=== PATIENT | male | born 1955 | race Caucasian/White ===

== ENCOUNTER 2017-10-06 08:15 | Day surgery (SDC) | payer BC ==
--- NOTE | 2017-09-27 14:11 | HISTORY AND PHYSICAL ---
DATE OF SERVICE: This will be for outpatient surgery on 10/06/2017 for right shoulder arthroscopy, biceps tenodesis and rotator cuff repair. HISTORY OF PRESENT ILLNESS: The patient is a 61-year-old right hand dominant gentleman with complaints of right shoulder pain. He injured his right shoulder when he was pulling on a wrench. He felt a tearing sensation in his shoulder. He had had some antecedent pain prior to this. An MRI revealed a full thickness infraspinatus tear as well as long head of biceps tear and due to functional impairment and failure to improve with conservative measures, the patient has elected to proceed with surgical intervention. REVIEW OF SYSTEMS: No chest pain. No shortness of breath. No dysuria. PAST MEDICAL HISTORY: CVA, hyperlipidemia, and hypertension. PAST SURGICAL HISTORY: Herniorrhaphy. FAMILY HISTORY: Ischemic heart disease. PRIMARY CARE PROVIDER: Dr. Roque. MEDICATIONS: Adult aspirin, clopidogrel, lisinopril, [place], B12, and pravastatin. ALLERGIES: No known drug allergies. SOCIAL HISTORY: The patient denies alcohol and tobacco use. PHYSICAL EXAMINATION: GENERAL: The patient is well developed, well nourished, in no acute distress. HEENT: Normocephalic, atraumatic. Pupils are equal, round, and reactive. Oropharynx is clear. NECK: Supple, no lymphadenopathy. LUNGS: Clear to auscultation bilaterally. HEART: Regular rate and rhythm. ABDOMEN: Soft, nontender, nondistended. EXTREMITIES: The right shoulder demonstrates active forward elevation of 170 degrees, external rotation of 80 degrees, internal rotation of 70 degrees. He has weakness with abduction and external rotation with positive Neer's and positive Hawkin sign. He has positive Roane's maneuver pain with apprehension. IMPRESSION: Right shoulder rotator cuff tear with long head of biceps tear. PLAN: Right shoulder arthroscopy, biceps tenodesis and rotator cuff repair. The risks, benefits, options, complications and recovery have been discussed at length with the patient. He understands and wishes to proceed. Job ID: [id number] DocumentID: [id number] Dictated Date: 09/27/2017 13:27:50 Architectural Modeler Date: 09/27/2017 14:11:27 Dictated By: QASIM CONWAY MD
[~2017-10-06] VITALS: Ht 182.9 cm; Wt 93.4 kg
[~2017-10-06 08:15] MED LIST: ASPI-586 PO; CLOP75TA28 PO; CYAN100088 PO; LISI-552 PO; METO-333 PO; PRAV40TA2 PO
[2017-10-06] MEDS ORDERED: ceFAZolin 1 GM/NS 50 ML IVPB IV ONE ×2 (08:30)
[2017-10-06] MEDS ORDERED: DEXAMETHASONE 10 MG/ML (DECADRON) 1 ML VIAL ONE (08:35)
[2017-10-06] MEDS ORDERED: SEVOFLURANE (ULTANE) 15 ML INHAL SOLN ONE ×6 (08:35→11:22)
[2017-10-06] MEDS ORDERED: LIDOCAINE PF 2% 5 ML (XYLOCAINE) VIAL ONE (08:35)
[2017-10-06] MEDS ORDERED: LACTATED RINGERS 1,000 ML IV ONE (08:35)
[2017-10-06] MEDS ORDERED: proPOfol 200 MG/20 ML (DIPRIVAN) VIAL IV ONE (08:35)
[2017-10-06] MEDS ORDERED: HURRICAINE EXT TUBE (BENZOCAINE) ONE (08:35)
[2017-10-06] MEDS ORDERED: MIDAZOLAM 2 MG/2 ML (VERSED) VIAL ONE (08:36)
[2017-10-06] MEDS ORDERED: fentaNYL INJECTION 100 MCG/2 ML AMP ONE (08:36)
[2017-10-06] MEDS ORDERED: BUPIVACAINE 0.25% 30 ML (SENSORCAINE) VIAL ONE (08:44)
[2017-10-06] MEDS ORDERED: ATRACURIUM 50 MG/5 ML (TRACRIUM) IV ONE (08:49)
[2017-10-06] MEDS ORDERED: morphine PF (DURAMORPH) 10 MG/10 ML AMP ONE (09:11)
[2017-10-06] MEDS: LACTATED RINGERS 1,000 ML IV PRN ×2 (09:25→10:57)
[2017-10-06 09:29] VITALS: BP 136/80
--- NOTE | 2017-10-06 09:37 | Anesthesia-Peripheral Nerve Bl ---
Procedure Start/Stop Time Date of Procedure: Oct 06, 2017 Start Time: 09:15 Referring Physician: Pipe Stop Time: 09:30 Peripheral Nerve Block Peripheral Nerve Blockade Risk/Benefits/Alternatives discussed, including IV injection leading to complications or seizures, nerve irritation or damage, pneumothorax, total spinal anesthesia, injection, and/or bleeding. Side Confirmed: RIGHT Indication: Req Pain Mgmt by Surgeon Specifically requested for management of pain by: Pipe Patient Condition Patient Condition: Awake, Sedate/contact maintained (versed 2 mg given for block placement) Procedure Position: Supine [place]: Short-bevel Needle (s) Size: 22g 2" Technique: Injection through needle, Nerve Stimulation mA: 0.4 Sedation Given: Midazolam (2mg) Injectate: ropivacaine Concentration %: 0.5 Volume (ml): 28 Epinephrine used: No Narrative Injection was made incrementally with constant monitoring. Blood Aspirated: No Pain on injection noted: No Normal Resistance on injection: Yes Events Events: None:easy well tolerated Sucess: Complete Patient Conditon Post Peripheral Nerve Block Post Peripheral Nerve Block Vital Signs: Blood Pressure: Systolic Diastolic Heart Rate MILADYS RENE CRNA Oct 06, 2017 09:37
--- NOTE | 2017-10-06 09:54 | Progress Note-Pre Operative ---
Pre-Operative Progress Note H&P Reviewed The H&P was reviewed, patient examined and no changes noted. Date Seen by Provider: Oct 06, 2017 Time Seen by Provider: 09:54 Date H&P Reviewed: Oct 06, 2017 Time H&P Reviewed: 09:54 Pre-Operative Diagnosis: right SLAP and rotator cuff tears QASIM CONWAY MD Oct 06, 2017 09:54
--- NOTE | 2017-10-06 09:56 | Progress Note-Post Operative ---
Post-Operative Progess Note Surgeon (s)/Bus Info Consultant (s) Surgeon QASIM CONWAY MD Bus Info Consultant: Joaquin Morris Pre-Operative Diagnosis right SLAP and rotator cuff tears Post-Operative Diagnosis right shoulder SLAP tear, labral tear, humeral head chondromalacia and impingement Procedure & Operative Findings Date of Procedure 10/06/17 Procedure Performed/Findings right shoulder arthroscopic labral debridement, chondroplasty of the humeral head , acromioplasty and biceps tenodesis Anesthesia Type GETA plus interscalene Estimated Blood Loss Estimated blood loss (mL): minimal Specimens/Packing Specimens Removed none Packing: none QASIM CONWAY MD Oct 06, 2017 09:56
[2017-10-06] MEDS ORDERED: oxyCODONE/APAP 5/325MG (PERCOCET 5) TABLET PO PRN (10:00)
[2017-10-06] MEDS ORDERED: GLYCOPYRROLATE 0.2 MG/ML (ROBINUL) 2 ML VIAL ONE (10:54)
[2017-10-06] MEDS ORDERED: ONDANSETRON 4 MG/2 ML (SDV) Z0FRAN ONE (11:10)
[2017-10-06] MEDS ORDERED: ATROPINE INJ 0.4 MG/ML SDV ONE (11:11)
[2017-10-06] MEDS ORDERED: morphine INJ 10 MG/ML 1ML (SYR OR VIAL) IVP PRN (11:45)
[2017-10-06 12:40] VITALS: BP 145/88
[2017-10-06 13:10] VITALS: BP 144/91
[2017-10-06] MEDS ORDERED: OXYC-471 PO (13:25)
[2017-10-06 13:40] VITALS: BP 154/92
[2017-10-06 14:02] VITALS: BP 154/92
--- NOTE | 2017-10-06 16:51 | OPERATIVE REPORT ---
DATE OF SERVICE: 10/06/2017 PREOPERATIVE DIAGNOSES: 1. Right shoulder rotator cuff tear. 2. Right shoulder superior labrum anterior and posterior tear. POSTOPERATIVE DIAGNOSES: 1. Right shoulder superior labrum anterior and posterior tear. 2. Right shoulder labral tear. 3. Right shoulder impingement. 4. 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 PROCEDURES: 1. Right shoulder arthroscopic-assisted biceps tenodesis. 2. Right shoulder arthroscopic labral debridement. 3. Right shoulder arthroscopic chondroplasty of the humeral head. 4. Right shoulder arthroscopic acromioplasty. SURGEON: Dr. Mauro Conway. WATER METER INSTALLER: Joaquin Morris, who assisted throughout the procedure and closed the incisions. ANESTHESIA: General endotracheal plus interscalene nerve block by Dr. Mcgrath. ESTIMATED BLOOD LOSS: Minimal. DRAINS: None. COMPLICATIONS: None. POSTOPERATIVE PLAN: Passive range of motion and sling wear for 2 weeks. The patient was transferred to the recovery room awake and in stable condition. STATEMENT OF MEDICAL NECESSITY: The patient is a 61-year-old gentleman who injured his right shoulder while he was turning a wrench. He felt and heard a pop and since then has had pain and weakness with overhead activities. An MRI revealed a type 2 SLAP tear, in addition what appeared to be a tear of the infraspinatus with a muscular strain associated with this. Due to functional impairment and failure to improve with conservative measures, the patient elected to proceed with surgical intervention. Examination under anesthesia revealed forward elevation of 170 degrees, external rotation of 80 degrees and external rotation of 70 degrees. Arthroscopic findings demonstrated a type 2 SLAP tear with scarring of the long head of the biceps to the undersurface of the joint capsule. There was an anterior labral flap at the 3 o'clock position. There was a grade III chondral flap on the humeral head and a 15 x 15 area centrally. No rotator cuff pathology was noted. There was a moderate bursitis and subacromial space was sloping in the anterolateral acromion. DESCRIPTION OF PROCEDURE: After risks and benefits of the procedure were discussed, questions were answered and informed consent was signed and placed on the chart. The operative site was confirmed in the preoperative holding area and initialed by the surgeon. The patient was then transferred to the operating room. After adequate levels of general endotracheal anesthetic routine, a timeout was called confirming the operative site. Examination under anesthesia was performed with the above findings noted. The right shoulder was prepped and draped in the usual sterile fashion. Shoulder joint was injected with 20 mL fluid as well as subacromial space. Standard posterior portal was placed under direct visualization, anterior portal was created in the interval between the biceps, subscapularis and glenoid. The humeral head was debrided performing a chondroplasty back to a stable edge. The unstable labral flap was debrided with a shaver back to a stable edge. The long head of the biceps was dissected off the capsule and then released from the labrum and the stump was debrided with the shaver. The rotator cuff was closely inspected, no tearing was noted. The scope was redirected in the subacromial space and no rotator cuff tearing was noted. The bursectomy was performed through a lateral portal and the acromion was planed to a flat type 1 acromion. The portal sites were closed with 4-0 nylon in a simple interrupted fashion. Incision was then made on the upper medial arm just distal to the pectoralis major insertion. The underlying soft tissues were carefully dissected exposing the long head of the biceps. This was then pulled into the wound and then whipstitched from the musculotendinous junction extending approximately 2.5 cm. A single unicortical drill hole was made in the bicipital groove just distal to the pectoralis major. The sutures that had been passed through the tendon were then passed through the Endobutton device, which was then passed into the humeral canal. This was then flipped and pulled the tendon to the cortical surface. The elbow and shoulder were taken through range of motion and found to be stable. This was then oversewn on itself and tied. Excess tendon was removed. The wound was copiously irrigated. A 2-0 Vicryl was used to reapproximate subcutaneous tissue. Skin was closed with 4-0 nylon in a running alternating horizontal mattress fashion. The area was infiltrated with plain Marcaine. A soft dressing and sling were applied. The patient was transferred to the recovery room awake and stable condition. Job ID: [id number] DocumentID: [id number] Dictated Date: 10/06/2017 11:33:48 Shade Cutter Date: 10/06/2017 14:25:06 Dictated By: MAURO CONWAY MD
== END 2017-10-06 14:02 | disposition home or self-care (01) ==
LOC: SDC 08:15
PROVIDERS: ATTEND Orthopaedic Surgery
DX: S43.431A Superior glenoid labrum lesion of right shoulder, initial encounter (principal); M75.41 Impingement syndrome of right shoulder; M94.211 Chondromalacia, right shoulder; I10 Essential (primary) hypertension; E78.5 Hyperlipidemia, unspecified; I69.351 Hemiplegia and hemiparesis following cerebral infarction affecting right dominant side; Z79.899 Other long term (current) drug therapy; Z79.82 Long term (current) use of aspirin; Z87.891 Personal history of nicotine dependence

== ENCOUNTER → 2023-05-05 | Outpatient (CLI) | payer MEDICARE, SELFPAY ==
[~2023-05-05] MED LIST changes: -LISI-552 PO; +LISI20TA26 PO; +OXYC1TAB11 PO
--- NOTE | 2023-05-05 08:50 | Diagnostic Imaging Report ---
CLINICAL HISTORY: Screening. COMPARISON: None. TECHNIQUE: Non-contrast enhanced EKG-gated axial images were obtained with a coned down field of view to assess for coronary calcium. Post processing of the images was performed on an independent work station. CTDI volume 4.29 mGy DLP 80.9 mGy*cm FINDINGS: Important Information About Your Scan: The following information is based on an analysis of the coronary arteries only. Calcium deposits do not correspond directly to the percentage of narrowing of the arteries. They do correlated directly to the amount of coronary plaque, and to the risk of future coronary disease. The calcium deposits usually begin to form years before any symptoms develop. Early detection and modification of risk factors, such as smoking and cholesterol intake, can slow the progress of coronary artery disease. A low score suggests a low likelihood of coronary artery disease, but does not exclude the possibility of significant coronary artery narrowing. The results should be discussed with your physician, taking into account other risk factors such as age, gender, family history, diabetes, smoking or high cholesterol levels. Should you ever experience chest pain, difficulty breathing, discomfort radiating into your neck or arm, or discomfort combined with lightheadedness, sweating, fainting or nausea, you should seek prompt medical attention. Calcium Score: Agatston units 0 - 0: No identifiable atherosclerotic plaque 1 - 10: Minimal plaque burden 11 - 100: Mild plaque burden 101 - 400: Moderate plaque burden Greater than 401: Extensive plaque burden. Score Summary: Your total calcium score is 241 Agatston units. Ranking Guide: Your score of 241 Agatston units places you in the 50th-75th percentile rank. That means out of a group of people with same gender and similar age as yourself 25 percent will have a higher calcium score than you, as reported in literature. CORONARY AJ-130 Left Main artery (LMA) 135.9 Left Anterior Descending (LAD) 65.3 Left Circumflex (LCX) 39.9 Right Coronary Artery (RCA) 0 Posterior Descending Artery (PDA) 0 Total 241.1 Agatston units The visualized portions of the lungs demonstrate no focal nodules or masses. There are no pleural or pericardial effusions. The visualized osseous structures are age appropriate. IMPRESSION: 1. CT coronary calcium score is 241.1 Agatston units 2. Adoption and maintenance of a healthy lifestyle is recommended for all people. This includes regular appropriate exercise and observance of a proper diet, to ensure balanced nutrition and weight control. 3. Tobacco use should be avoided. 4. Hypercholesterolemia has been linked to coronary atherosclerosis. Ensure strict adherence to NCEP (National Cholesterol Education Panel) cholesterol-lowering guidelines. For primary prevention, these include a target goal for total cholesterol of less than 200 mg/dL, HDL cholesterol of greater than 40 mg/dL, triglycerides of less than 200 mg/dL and LDL cholesterol of less than 100 mg/dL Secondary prevention involves more stringent goals. However, please note that these are general recommendations and as with all such matters, the personal family physician should be consulted regarding recommendations appropriate for the individual. Recommend evaluation and treatment for all the other cardiovascular risk factors. Dictated by: Dictated on workstation # [id number]
== END ==
LOC: RAD FS 07:52
PROVIDERS: ATTEND Nurse Practitioner Family
DX: Z13.6 Encounter for screening for cardiovascular disorders (principal); E78.2 Mixed hyperlipidemia; E78.00 Pure hypercholesterolemia, unspecified; I25.10 Atherosclerotic heart disease of native coronary artery without angina pectoris
CPT/HCPCS: 75571

== ENCOUNTER → 2023-08-30 | Outpatient (CLI) | payer MEDICARE | LOC: CANPRECLI → CARD 10:39 | PROVIDERS: ATTEND Internal Medicine Cardiovascular Disease | DX: I25.10 Atherosclerotic heart disease of native coronary artery without angina pectoris (principal) | CPT/HCPCS: 93306 ==

== ENCOUNTER → 2023-10-27 | Outpatient (CLI) | payer MEDICARE, SELFPAY ==
[~2023-10-27] MED LIST changes: +CATHETER FLUSH 10 ML SYR IVP PRN
[2023-10-27 13:13] VITALS: BP 164/94
--- NOTE | 2023-10-27 15:09 | Cardiology Stress Test Report ---
Stress Test Report Date of Procedure/Referring: Date of Procedure: Oct 27, 2023 PCP Ashtyn Faustin Aprn Admitting Physician Admitting Physician: Attending Physician: Vaibhav Renae MD Baseline Heart Rate: 75 Baseline Blood Pressure: Blood Pressure Systolic: 164 Blood Pressure Diastolic: 94 Vital Signs Date Time Temp Pulse Resp B/P (MAP) Pulse Ox O2 Delivery O2 Flow Rate FiO2 10/27/23 13:13 75 164/94 (117) 98 Baseline Vital Signs Vital Signs Date Time Temp Pulse Resp B/P (MAP) Pulse Ox O2 Delivery O2 Flow Rate FiO2 10/27/23 13:13 75 164/94 (117) 98 Baseline EKG: Baseline EKG: NSR Summary: After explaining the procedure and details to the patient, he signed the consent and was brought to the stress nuclear laboratory. Patient exercised on standard [place] protocol, EKG, heart rate and blood pressure were monitored continuously, resting and stress doses of radio tracer were injected, imaging was acquired and reviewed in the short axis, horizontal long axis and vertical long axis views Patient was able to exercise for a total of 4 minutes on [place] protocol, METs 5.8 Maximum heart rate 142 Maximum blood pressure 221/85 Stress EKG, Minimal nondiagnostic changes Recovery EKG, Return to baseline TID: 0.91 SSS: 6 SDS: 1 EF: 57 Conclusion: Good exercise tolerance for 4 minutes on standard [place] protocol, 5.8 METS achieving 94% of maximal expected heart rate Appropriate heart rate with hypertensive response to exercise with peak blood pressure 221/85 return to baseline during recovery Nondiagnostic EKG changes with exercise return to baseline during recovery Diaphragmatic attenuation with fixed defect involving the mid to apical inferior wall and inferolateral wall with no significant ischemia or infarction on SPECT images Normal left ventricular size, ejection fraction 57% Copy Copies To 1: [facility] VAIBHAV RENAE MD Oct 27, 2023 15:09
== END ==
LOC: CARD 11:25
PROVIDERS: ATTEND Internal Medicine Cardiovascular Disease
DX: I25.10 Atherosclerotic heart disease of native coronary artery without angina pectoris (principal)
CPT/HCPCS: 78452; 93017; A9502